=== PATIENT | male | born 1955 | race Caucasian/White ===

== ENCOUNTER 2017-06-01 21:02 | Emergency (ER) | payer MEDICARE ==
[~2017-06-01] VITALS: Ht 172.7 cm; Wt 80.9 kg
[2017-06-01] MEDS ORDERED: MEDI-FIRST ASP325 MG PO (21:27)
[2017-06-01 22:35] VITALS: BP 139/96
== END 2017-06-01 22:35 | disposition home or self-care (01) ==
LOC: ED 21:02
DX: S61.214A Laceration without foreign body of right ring finger without damage to nail, initial encounter (principal); Z23 Encounter for immunization; W23.0XXA Caught, crushed, jammed, or pinched between moving objects, initial encounter; Y92.008 Other place in unspecified non-institutional (private) residence as the place of occurrence of the external cause; I25.10 Atherosclerotic heart disease of native coronary artery without angina pectoris; Z95.1 Presence of aortocoronary bypass graft; Z86.73 Personal history of transient ischemic attack (TIA), and cerebral infarction without residual deficits; F17.200 Nicotine dependence, unspecified, uncomplicated
CPT/HCPCS: 90715